=== PATIENT | female | born 1975 | race African-American/Black ===

== ENCOUNTER 2017-03-11 17:25 | Emergency (ER) | payer OTHER ==
[~2017-03-11] VITALS: Ht 177.8 cm; Wt 104.3 kg
--- NOTE | ~2017-03-11 | EKG ---
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: [facility] : 1975 Requested By: Isaiah Figueroa Order Number: [id number] MD: Howie Pinto Measurements Intervals [place] Rate: 75 P: 12 DC: 153 QRS: -20 QRSD: 87 T: 32 QT: 368 QTc: 411 Interpretive Statements Sinus rhythm Borderline left axis deviation Compared to ECG 03/02/2011 08:01:32 No significant changes Electronically Signed On 03-12-2017 9:01:25 FITTER / WELDER by Howie Pinto [email or web address] <ELECTRONICALLY SIGNED> By: Howie Pinto MD, [facility] 03/12/17 0901 1844 1844 Howie Pinto MD, FACC /EPI
[~2017-03-11 17:25] MED LIST: ALPRAZOLAM 0.50.5 M1 PO; AMOXICILLIN 50500 M1 PO; BACTRIM DS TAB1 EACH PO; BENADRYL ALLERG25 MG PO; BENADRYL25 MG PO; IBUPROFEN 600600 M1 PO; LEXAPRO 10 MG T10 M2 PO; LORTAB 5 MG/5001 TA1 PO; MULTIVITAMINS PO; NORCO 5-325 TA1 EACH PO; NORFLEX100 MG PO; PEPCID40 MG PO; PREDNISONE 5 MG5 M1 PO; PROBIOTIC1 EACH PO; REGLAN 5 MG TAB5 M1 PO
[2017-03-11] MEDS ORDERED: VENLAFAXINE HCL75 MG PO (17:54)
[2017-03-11 18:38] LABS: BASOPHILS 0.7 % (0.0-2.0); EOSINOPHILS 3.6 % (0.0-3.0); HEMATOCRIT 40.2 % (37.0-47.0); HEMOGLOBIN 14.1 gm/dL (12.0-15.0); LYMPHOCYTES 39.9 % (24.0-44.0); MCH 35.2 pg (26.0-34.0); MCHC 35.2 g/dL (28.0-37.0); MCV 100.2 fL (80.0-100.0); MONOCYTES 7.9 % (1.0-8.0); PLATELET COUNT 364 thou/uL (150-400); POLYS 47.9 % (36.0-66.0); RBC 4.02 mil/uL (4.20-5.00); RDW 13.5 % (10.5-14.5); WBC 6.2 thou/uL (4.0-11.0)
[2017-03-11 19:19] LABS: POTASSIUM 3.9 mmol/L (3.5-5.1)
[2017-03-11] MEDS ORDERED: MEDROLDOSEPACK PO (20:23)
[2017-03-11] MEDS ORDERED: IBUPROFEN 600600 M1 PO (20:23)
== END 2017-03-11 20:57 | disposition home or self-care (01) ==
LOC: ER 17:25
PROVIDERS: Physician Assistant
DX: M79.605 Pain in left leg (principal); R20.0 Anesthesia of skin; Z91.041 Radiographic dye allergy status; Z88.8 Allergy status to other drugs, medicaments and biological substances

== ENCOUNTER 2018-04-25 15:29 | Emergency (ER) | payer OTHER ==
[~2018-04-25] VITALS: Ht 177.8 cm; Wt 104.3 kg
[~2018-04-25 15:29] MED LIST changes: +MEDROLDOSEPACK PO; +VENLAFAXINE HCL75 MG PO
[2018-04-25 17:13] LABS: ABSOLUTE NEUTROPHILS 3.9 thou/uL (1.4-8.2); BASOPHILS 0.3 % (0.0-2.0); EOSINOPHILS 1.6 % (0.0-3.0); HEMATOCRIT 42.8 % (37.0-47.0); HEMOGLOBIN 14.8 gm/dL (12.0-15.0); LYMPHOCYTES 29.5 % (24.0-44.0); MCH 34.2 pg (26.0-34.0); MCHC 34.5 g/dL (28.0-37.0); MCV 98.9 fL (80.0-100.0); MONOCYTES 6.7 % (1.0-8.0); PLATELET COUNT 275 thou/uL (150-400); POLYS 61.9 % (36.0-66.0); RBC 4.32 mil/uL (4.20-5.00); RDW 12.7 % (10.5-14.5); WBC 6.3 thou/uL (4.0-11.0)
[2018-04-25 17:18] LABS: CALCIUM 9.1 mg/dL (8.5-10.1); POTASSIUM 4.7 mmol/L (3.5-5.1)
[2018-04-25 17:29] LABS: URINE BILIRUBIN NEGATIVE (Negative); URINE BLOOD NEGATIVE (Negative); URINE CLARITY CLEAR; URINE COLOR YELLOW; URINE GLUCOSE-RANDOM* NEGATIVE (Negative); URINE KETONES TRACE (Negative); URINE LEUKOCYTES-REFLEX NEGATIVE (Negative); URINE NITRITE-REFLEX NEGATIVE (Negative); URINE PROTEIN (DIPSTICK) NEGATIVE (Negative); URINE SPECIFIC GRAVITY >= 1.030 (1.005-1.035); URINE UROBILINOGEN 0.2 E.U./dl (0.2-1.0)
[2018-04-25] MEDS ORDERED: ADIPEX-P37.5 MG PO (17:30)
[2018-04-25 18:20] VITALS: BP 142/97
--- NOTE | 2018-04-26 09:03 | EKG ---
[address] [address] [facility] [place] [address] ELECTROCARDIOGRAM REPORT Name: CAROLYN FRANCO Room #: [facility]#: [id number] ������������������ Admission: 04/25/18 ������������������ Attend Phys: Discharge: 04/25/18 ������������������ Date of : 73 Report #: [id number] ����������������������������������������������������������������� [id number] THIS REPORT FOR: //name// [facility] ED Test Date: 2018-04-25 Test Time: 17:23:46 Pat Name: CAROLYN FRANCO Department: Room: Gender: F Inspector Balance Bridge: DRISS : 1975 Requested By: Iveth Waters Order Number: [id number] MD: Howie Pinto Measurements Intervals [place] Rate: 78 P: 56 [place]: 147 QRS: -37 QRSD: 89 T: 33 QT: 373 QTc: 425 Interpretive Statements Sinus rhythm Left axis deviation Poor R wave progression Compared to ECG 03/11/2017 18:44:20 No significant change was found Electronically Signed On 04-26-2018 9:03:22 CDT by Howie Pinto [email or web address] ��������������������������������������������� <ELECTRONICALLY SIGNED> ���������������������������������������� By: Howie Pinto MD, [facility] ��������������������������������������������� 04/26/18902 172 22 Howie Pinto MD, FACC /EPI
== END 2018-04-25 18:21 | disposition home or self-care (01) ==
LOC: ER 15:29
PROVIDERS: Physician Assistant
DX: E86.0 Dehydration (principal); J30.9 Allergic rhinitis, unspecified; R42 Dizziness and giddiness; Z91.041 Radiographic dye allergy status; Z91.018 Allergy to other foods; Z88.8 Allergy status to other drugs, medicaments and biological substances; Z90.711 Acquired absence of uterus with remaining cervical stump

== ENCOUNTER → 2018-05-05 | Outpatient (CLI) | payer OTHER ==
[~2018-05-05] MED LIST changes: +ADIPEX-P37.5 MG PO
== END ==
LOC: MRI 07:37
DX: M25.461 Effusion, right knee (principal); M25.761 Osteophyte, right knee; M17.11 Unilateral primary osteoarthritis, right knee

== ENCOUNTER 2018-06-30 20:37 | Emergency (ER) | payer OTHER ==
[~2018-06-30] VITALS: Ht 177.8 cm; Wt 123.4 kg
[2018-06-30 22:01] LABS: HEMATOCRIT 38.6 % (37.0-47.0); MCV 97.6 fL (80.0-100.0); RBC 3.96 mil/uL (4.20-5.00)
[2018-06-30 22:02] LABS: ABSOLUTE NEUTROPHILS 5.3 thou/uL (1.4-8.2); BASOPHILS 0.7 % (0.0-2.0); HEMOGLOBIN 13.4 gm/dL (12.0-15.0); LYMPHOCYTES 33.8 % (24.0-44.0); MCH 33.9 pg (26.0-34.0); MCHC 34.7 g/dL (28.0-37.0); MONOCYTES 7.2 % (1.0-8.0); PLATELET COUNT 226 thou/uL (150-400); POLYS 56.3 % (36.0-66.0); RDW 12.8 % (10.5-14.5)
[2018-06-30 22:06] LABS: ANION GAP 8 mmol/L (7-16); BUN 15 mg/dL (7-18); CALCIUM 9.6 mg/dL (8.5-10.1); CHLORIDE 105 mmol/L (98-107); CO2 27 mmol/L (21-32); CREATININE 0.9 mg/dL (0.6-1.0); GLUCOSE 110 mg/dL (74-106); POTASSIUM 3.7 mmol/L (3.5-5.1); SODIUM 140 mmol/L (136-145)
[2018-06-30 22:14] LABS: TROPONIN-I <0.06 ng/mL (<0.06)
[2018-06-30 23:43] VITALS: BP 144/87
--- NOTE | 2018-07-01 08:26 | EKG ---
[address] [place] [address] ELECTROCARDIOGRAM REPORT Name: CAROLYN FRANCO Room #: [facility]#: [id number] ������������������ Admission: 06/30/18 ������������������ Attend Phys: Discharge: 06/30/18 ������������������ Date of : 73 Report #: [id number] ����������������������������������������������������������������� [id number] THIS REPORT FOR: //name// [facility] ED Test Date: 2018-06-30 Test Time: 20:59:43 Pat Name: CAROLYN FRANCO Department: Room: Gender: F Telemetry Rn: [email or web address] : 1975 Requested By: Collin Levi Order Number: [id number] MD: Howie Pinto Measurements Intervals [place] Rate: 80 P: 54 [place]: 151 QRS: -20 QRSD: 90 T: 22 QT: 370 QTc: 427 Interpretive Statements Sinus rhythm Borderline left axis deviation Compared to ECG 04/25/2018 17:23:46 Poor R-wave progression no longer present Electronically Signed On 07-01-2018 8:25:57 CDT by Howie Pinto [email or web address] ��������������������������������������������� <ELECTRONICALLY SIGNED> ���������������������������������������� By: Howie Pinto MD, [facility] ��������������������������������������������� 07/01/18824 58 58 Howie Pinto MD, FACC /EPI
== END 2018-06-30 23:43 | disposition home or self-care (01) ==
LOC: ER 20:37
PROVIDERS: Emergency Medicine
DX: R03.0 Elevated blood-pressure reading, without diagnosis of hypertension (principal); R07.89 Other chest pain; Z91.041 Radiographic dye allergy status; Z88.8 Allergy status to other drugs, medicaments and biological substances; Z91.018 Allergy to other foods; Z90.711 Acquired absence of uterus with remaining cervical stump

== ENCOUNTER 2018-08-20 21:06 | Emergency (ER) | payer OTHER ==
[~2018-08-20] VITALS: Ht 177.8 cm; Wt 106.6 kg
[2018-08-20 21:11] VITALS: BP 148/94
== END 2018-08-20 21:45 | disposition home or self-care (01) ==
LOC: ER 21:06
DX: H92.01 Otalgia, right ear (principal); Z90.710 Acquired absence of both cervix and uterus; Z91.041 Radiographic dye allergy status; Z91.02 Food additives allergy status

== ENCOUNTER 2020-06-17 21:36 | Emergency (ER) | payer OTHER ==
[~2020-06-17] VITALS: Ht 177.8 cm; Wt 86.2 kg
[2020-06-17 22:42] LABS: ABSOLUTE NEUTROPHILS 3.6 thou/uL (1.4-8.2); BASOPHILS 0.5 % (0.0-2.0); EOSINOPHILS 1.2 % (0.0-3.0); HEMOGLOBIN 13.3 gm/dL (12.0-15.0); LYMPHOCYTES 39.7 % (24.0-44.0); MCH 34.1 pg (26.0-34.0); MCHC 34.1 g/dL (28.0-37.0); MCV 100.2 fL (80.0-100.0); MONOCYTES 6.3 % (1.0-8.0); PLATELET COUNT 275 thou/uL (150-400); POLYS 52.3 % (36.0-66.0); RBC 3.89 mil/uL (4.20-5.00); RDW 13.3 % (10.5-14.5); WBC 6.8 thou/uL (4.0-11.0)
[2020-06-17 22:49] LABS: ANION GAP 11 mmol/L (7-16); BUN 17 mg/dL (7-18); CALCIUM 9.2 mg/dL (8.5-10.1); CHLORIDE 105 mmol/L (98-107); CO2 27 mmol/L (21-32); CREATININE 1.5 mg/dL (0.6-1.0); GLUCOSE 108 mg/dL (74-106); POTASSIUM 3.2 mmol/L (3.5-5.1); SODIUM 143 mmol/L (136-145)
[2020-06-17 22:59] LABS: ALBUMIN 3.9 g/dL (3.4-5.0); SGOT 21 U/L (15-37); SGPT 29 U/L (14-59); TOTAL BILIRUBIN 0.3 mg/dL (0.2-1.0); TROPONIN-I <0.06 ng/mL (<0.06)
[2020-06-18 00:21] VITALS: BP 116/70
--- NOTE | 2020-06-19 13:47 | EKG ---
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
== END 2020-06-18 00:31 | disposition home or self-care (01) ==
LOC: ER 21:36
PROVIDERS: Physician Assistant
DX: R07.89 Other chest pain (principal); R00.2 Palpitations; R20.2 Paresthesia of skin; I10 Essential (primary) hypertension; Z90.711 Acquired absence of uterus with remaining cervical stump; Z98.890 Other specified postprocedural states; Z79.899 Other long term (current) drug therapy; Z91.041 Radiographic dye allergy status; Z91.048 Other nonmedicinal substance allergy status; Z91.018 Allergy to other foods